=== PATIENT | male | born 1950 | race Caucasian/White ===

== ENCOUNTER → 2016-12-27 | Outpatient (CLI) | payer OTHER ==
[~2016-12-27] MED LIST: ASPIRIN EC81 MG PO; BETAPACE (GENER80 MG PO; DILAUDID 2MG(HYD2 MG PO; MIRALAX17 GM PO; NORCO 5-325 MG1 TAB PO; THERAGRAN-M1 TAB PO; VALIUM5 MG PO; VITAMIN B-121000 MCG PO; XARELTO20 MG PO; [UNRECOGNIZED DRUG - REMARK] PO
== END | disposition disaster alternative care site (69) ==
LOC: GCAR 13:40
DX: C94.80 Other specified leukemias not having achieved remission (principal); I44.4 Left anterior fascicular block; R94.31 Abnormal electrocardiogram [ECG] [EKG]

== ENCOUNTER → 2017-01-08 | Outpatient (CLI) | payer OTHER | END | disposition disaster alternative care site (69) | LOC: GCAR | DX: C92.10 Chronic myeloid leukemia, BCR/ABL-positive, not having achieved remission (principal); I44.4 Left anterior fascicular block; R94.31 Abnormal electrocardiogram [ECG] [EKG] ==

== ENCOUNTER → 2017-02-05 | Outpatient (CLI) | payer OTHER | END | disposition disaster alternative care site (69) | LOC: GCAR 01-10 10:29 | DX: C92.10 Chronic myeloid leukemia, BCR/ABL-positive, not having achieved remission (principal); I44.4 Left anterior fascicular block; I45.10 Unspecified right bundle-branch block; R94.31 Abnormal electrocardiogram [ECG] [EKG] ==

== ENCOUNTER 2017-04-25 07:55 | Emergency (ER) | payer OTHER ==
--- NOTE | ~2017-04-25 | ER ---
PATIENT'S NAME: CHRISTOPHER REYNOSO [facility] AGE: 66 Y [address] ROOM: [place] [address] LOCATION: [facility] ADMIT DATE: 04/25/2017 ER/Outpatient Report DISCHARGE DATE: 04/25/2017 FAMILY PHYSICIAN: Good Gross MD ATTENDING PHYSICIAN: Pavel Long TIME OF ARRIVAL: 0755 hours. TIME OF EVALUATION: 0811 hours. CHIEF COMPLAINT: Right shoulder blade pain. HISTORY OF PRESENT ILLNESS: The patient is a 66-year-old male who presents to the emergency department today with a chief complaint of right shoulder blade pain. He reports this started about 3 weeks prior to arrival. It is on the right side. He reports he underwent a cortisone injection at that time. Pain got significantly better. However, last night, it got significantly worse. He denies any fevers or chills. No nausea or vomiting. No chest pain. No shortness of breath. He does have some neck pain. He does report his right arm is numb, and he feels weak. The pain is currently moderate in severity. PAST MEDICAL HISTORY: CML and SVT. PAST SURGICAL HISTORY: Hip, shoulder, pacemaker, and ankle. SOCIAL HISTORY: The patient denies any tobacco use. Reports occasional alcohol use. Denies any illicit drug use. ALLERGIES: PENICILLIN AND RYTHMOL. MEDICATIONS: Please see list. REVIEW OF SYSTEMS: All systems are reviewed by myself and are negative with the exception of those discussed in the HPI and Past Medical History. PATIENT'S NAME: CHRISTOPHER REYNOSO [facility] AGE: 66 Y [address] ROOM: [place] [address] LOCATION: [facility] ADMIT DATE: 04/25/2017 ER/Outpatient Report DISCHARGE DATE: 04/25/2017 FAMILY PHYSICIAN: Good Gross MD ATTENDING PHYSICIAN: Pavel Long PHYSICAL EXAMINATION: VITAL SIGNS: Weight 99.8 kg. Blood pressure 150/100, pulse 72, respiratory rate 20, temperature 96.6, and oxygen saturation 95% on room air. GENERAL: The patient is a 66-year-old male who appears stated age, in mild acute distress secondary to back pain. HEENT. Head is normocephalic and atraumatic. Pupils are equal, round, and reactive to light. NECK: Supple with tenderness to palpation in the right paraspinal musculature. Positive compression test. CARDIOVASCULAR: Regular rate and rhythm. No murmurs, rubs, or gallops. LUNGS: Clear to auscultation bilaterally. No wheezes, rales, or rhonchi. ABDOMEN: Soft, nontender, and nondistended. No rebound, rigidity, or guarding. MUSCULOSKELETAL: The patient does have pain with range of motion of his right arm, 3/5 muscle strength on the right. SKIN: Warm and dry. VASCULAR: 2/4 pulses which are equal bilaterally, radial pulse. LABORATORY AND X-RAY DATA: CT scan of the C-spine and thoracic spine were obtained. I discussed the results with the radiologist. C-spine shows degenerative changes at C5-C6. There is dextroscoliosis. There are no focal disk herniations noted on CT imaging. IMPRESSION: 1. Cervical radiculopathy. 2. Degenerative changes, C5-6. 3. Initial visit. EMERGENCY DEPARTMENT COURSE: The patient was brought back to the examination room. Seen and evaluated by myself. The patient was given 5 mg of morphine IM. CT imaging was obtained as described above. The patient is significantly improved after the pain medicine. I have discussed results with the patient and his daughters at the bedside. I have written a prescription for prednisone, [place], and Flexeril with sedation warning. I have discussed return to care instructions including worsening symptoms or any other concerns, to return to the emergency department as soon as possible. I have asked the patient follows up with Dr. Gross, primary care doctor, in 2 to 3 days for reevaluation. The patient is agreeable and daughter is agreeable without further questions at this time. DISPOSITION,: The patient will be discharged to home in good condition. PATIENT'S NAME: CHRISTOPHER REYNOSO [facility] AGE: 66 Y [address] ROOM: [place] [address] LOCATION: [facility] ADMIT DATE: 04/25/2017 ER/Outpatient Report DISCHARGE DATE: 04/25/2017 FAMILY PHYSICIAN: Good Gross MD ATTENDING PHYSICIAN: Pavel Long DO FRANCISCO MURRIETA/modl /[id number] d: 04/25/17 1056 t: 04/25/17 1624, OUTPATIENT REPORT
== END 2017-04-25 09:34 | disposition disaster alternative care site (69) ==
LOC: GMED 07:55
DX: M50.122 Cervical disc disorder at C5-C6 level with radiculopathy (principal); Z88.0 Allergy status to penicillin; Z88.8 Allergy status to other drugs, medicaments and biological substances; Z96.89 Presence of other specified functional implants; Z98.890 Other specified postprocedural states
CPT/HCPCS: J2270

== ENCOUNTER → 2017-05-03 | Outpatient (CLI) | payer OTHER | END | disposition disaster alternative care site (69) | LOC: GRAD 05-01 09:30 | DX: M54.12 Radiculopathy, cervical region (principal); M53.2X2 Spinal instabilities, cervical region; M47.22 Other spondylosis with radiculopathy, cervical region; M48.02 Spinal stenosis, cervical region ==